=== PATIENT | male | born 1995 | race Caucasian/White ===

== ENCOUNTER 2022-06-14 10:19 | Emergency (ER) | payer SELFPAY ==
[2022-06-14] MEDS ORDERED: Lidocaine 1% PF 5 ML VIAL ONE (11:04)
[2022-06-14] MEDS ORDERED: Boostrix 0.5 ML (Tdap) VIAL (>/=7 yrs of age) ONE (11:04)
== END 2022-06-14 11:50 | disposition home or self-care (01) ==
LOC: ERS 10:19
DX: S61.412A Laceration without foreign body of left hand, initial encounter (principal); Z23 Encounter for immunization; W26.8XXA Contact with other sharp object(s), not elsewhere classified, initial encounter; Y99.0 Civilian activity done for income or pay
CPT/HCPCS: 12002; 90471; 90715